=== PATIENT | female | born 1985 | race Caucasian/White ===

== ENCOUNTER 2018-01-30 10:26 | Observation (INO) | payer MEDICAID ==
[~2018-01-30] VITALS: Ht 160 cm; Wt 106.6 kg
[2018-01-30] MEDS ORDERED: PREN-380 PO (10:49)
[2018-01-30 10:59] VITALS: BP 116/73
== END 2018-01-30 12:30 | disposition home or self-care (01) ==
LOC: MLD 10:26
PROVIDERS: ADMIT Obstetrics & Gynecology; ATTEND Obstetrics & Gynecology
DX: O26.893 Other specified pregnancy related conditions, third trimester (principal); R10.9 Unspecified abdominal pain; Z3A.32 32 weeks gestation of pregnancy
CPT/HCPCS: 76805; G0378; Q0092; 81000